=== PATIENT | female | born 1985 | race Caucasian/White ===

== ENCOUNTER 2023-08-18 10:50 | Outpatient (REF) | payer OTHER, SELFPAY ==
--- NOTE | ~2023-08-18 | US_ITS ---
EXAMINATION: MM DIAGNOSTIC DIGITAL BREAST TOMOSYNTHESIS, BILATERAL US BREAST LIMITED, BILATERAL MAMMOGRAPHY: CLINICAL INFORMATION: 38-year-old female presents for baseline mammography examination complaining of non-healing rash right nipple, which failed to resolve after medical management. Rule out abscess/mastitis. Note: Patient only speaks Romanian, and use of a manganese heater on the IPad translation system was necessary. Patient has no left breast complaints. COMPARISON: Mammography: None. Baseline exam. TECHNIQUE: Digital breast tomosynthesis is performed in both the craniocaudal and mediolateral oblique views along with computer-aided detection (CAD). Synthesized 2D images are generated from the tomosynthesis. In addition, 2-D spot magnification RIGHT CC and ML views were obtained of the nipple and retroareolar region RIGHT breast, full-field RIGHT 3-D 90 degree mediolateral view was obtained, as well as 3-D spot compression LEFT cc views x3, and LEFT MLO views x2. FINDINGS: The breasts are heterogeneously dense, which may obscure small masses (ACR BI-RADS breast composition Category c). RIGHT BREAST: -There are no suspicious masses, suspicious grouped calcifications, or areas of architectural distortion in the right breast. No definite skin or nipple thickening or retraction is identified. No axillary abnormality. The nipple region and retroareolar tissues will be evaluated by ultrasound. LEFT BREAST: -There is a spiculated irregular mass in the 12:00 axis of the left breast, middle one third, measuring up to 3.0 cm, with extensive associated parenchymal distortion, highly suspicious. -Posterolateral to this is an amorphous asymmetric focal density at the 2:00 axis measuring 1.6 cm in length. -Medial to the spiculated mass at the 11:00 axis is a focal asymmetric density measuring approximately 1.3 cm in length. Neither of these abnormalities compressed out on spot compression views, and persisted. These will be evaluated by ultrasound, as well as the index spiculated mass. Ultrasound of the left axilla was also be obtained. ULTRASOUND: CLINICAL INFORMATION: As above. COMPARISON: None TECHNIQUE: Targeted sonographic evaluation of both breasts was performed using a high frequency linear transducer. Attention to the periareolar region was given to the right breast. Attention to the 11:00, 12:00, 2:00 axes of the left breast was given, as well as the left axilla. Selected archived documentation. FINDINGS: Both the technologist and myself scanned the patient. RIGHT BREAST: There is no definite nipple thickening or periareolar thickening noted. No skin thickening is evident surrounding the nipple. There is mild duct ectasia in the retroareolar region, of which numerous ducts appear filled with hypoechoic material, and the region appears hyperemic on color Doppler imaging. Recommend periareolar skin puncture biopsy to exclude Paget's disease. LEFT BREAST: -There is an irregular spiculated markedly hypoechoic shadowing mass at the 12:00 axis left breast, 3 cm from the nipple, measuring 3.1 x 1.8 x 1.6 cm approximately, with sonographic spiculation in the margins, and hyperechoic surrounding fat. This does extend quite close to the pectoralis fascia and invasion cannot be excluded. This is a BI-RADS 5 lesion. Ultrasound-guided biopsy recommended. -At the 11:00 axis, 3 cm from the nipple, there is an 8 x 9 mm hypoechoic irregular mass, possibly a satellite lesion, although it only appeared masslike in one plane, and elongated in the orthogonal plane. This should ultimately be assessed by MRI. -At the 2:00 axis left breast, 10 cm from the nipple, there is a hypoechoic lobulated mass with through transmission and no internal color Doppler flow measuring 0.5 x 1.0 x 0.7 cm. This is of uncertain etiology but most likely represents either a satellite lesion or pathologic lymph node in the tail of Garza. Ultrasound-guided biopsy suggested. -Within the left axilla, there is a pathologic enlarged lymph node measuring 1.9 x 1.2 x 1.0 cm, with cortex measuring up to 6 mm, and grossly abnormal morphology. This is most likely a metastatic lymph node. Ultrasound-guided biopsy recommended. US/US breast BI limited mamm only IMPRESSION: 1. Findings in the RIGHT retroareolar region which could indicate Paget's disease of the nipple. Surgical consultation with punch biopsy recommended. 2. Spiculated irregular shadowing hypoechoic mass LEFT breast 12:00 axis measuring up to 3.1 cm, questionable hypoechoic irregular 8 x 9 mm mass at the LEFT 11:00 axis, hypoechoic lobulated mass measuring up to 1.0 cm in the LEFT 2:00 axis, and pathologically enlarged LEFT axillary lymph node measuring 1.9 cm with 6 mm cortex. These are all suspicious lesions. Ultrasound-guided biopsy recommended for the 12:00, 2:00 lesions and the pathologic left axillary lymph node. Ultimately breast MRI also recommended to assess extent of disease and for chest wall invasion. 3. Above findings discussed with the patient's in detail, who spoke Turkish, who appeared to better understand the findings and plan. OVERALL ASSESSMENT: Mammography: BI-RADS 5 - Highly suggestive of malignancy Ultrasound: BI-RADS 5 - Highly suggestive of malignancy RECOMMENDATION: Biopsy recommended
== END 2023-08-18 10:51 | disposition home or self-care (01) ==
LOC: HO.MAMMO 10:50
PROVIDERS: Visit Provider Advanced Practice Midwife
DX: Z12.31 Encounter for screening mammogram for malignant neoplasm of breast (principal); N61.0 Mastitis without abscess
CPT/HCPCS: 76642; 77062; 77066

== ENCOUNTER → 2023-08-18 11:00 | Outpatient (BNV) | payer OTHER, SELFPAY | PROVIDERS: Visit Provider Radiology Diagnostic Radiology | DX: N61.0 Mastitis without abscess (principal) | CPT/HCPCS: 76642; 77062; 77066 ==

== ENCOUNTER 2023-08-25 08:21 | Outpatient (AMB) | payer OTHER, SELFPAY ==
--- NOTE | 2023-08-25 08:22 | A.OFFVIS_ITS ---
Intake Vital Signs 08/25/23 08:35 Weight 174 lb BP 118/73 Blood Pressure Location Rt brachial Position Sitting Pulse 88 Intake Visit Reasons: Rt br punchbx- Lt br usbx 11&12 o'cl&nearLt axi Intake Note: This patient presents for a consultation for Left breast Ultrasound guided biopsy for 11:00,12:00 & axillary area. Pt c/o; reports was having pain on the right breast and swelling but has went away. Motion Picture Projectionist Apprentice Required: No Motion Picture Projectionist Apprentice Name: Frankie [id number] Copper Tapper: Copper Tapper Present (Niesha) Accompanied by: Self / Same As Patient Allergies No Known Allergies Allergy (Verified 08/25/23 08:31) Medication List - Last Reconciled 08/25/23 by Juanpablo Allen MD No Known Home Meds HPI Rt br punchbx- Lt br usbx 11&12 o'cl&nearLt axi HPI Details 38-year-old female referred for left homero ast masses. She mentions that she has had a mass the left breast for ?a few years?. She was sent for a mammogram by her primary care physician. This shows an irregular spiculated hypoechoic mass at the 12:00 o'clock excision of the left breast measuring 3.1 x 1.8 x 1.6 cm. This appears to be close to the pectoralis fascia. A 2nd mass at the 11 o'clock position is also seen measuring about 8 x 9 mm. There is what appears to be a pathologically enlarged axillary lymph node measuring 1.9 cm as well on the left side. Ultrasound biopsies of all these masses have been recommended by the radiologist. She also has this chronic rash on the nipple on the right side. Her menarche was at age of 19. Her 1st was at age of 33. She had be en 3 times. She denies any family history of breast cancer. [facility] Medical History (Updated 08/25/23 @ 09:08 by Juanpablo Allen MD) Nipple dermatitis Axillary lymphadenopathy Left breast mass Surgical History History of back surgery Social History Alcohol intake: never Patient Tobacco Use Status: Never used Tobacco Female Reproductive History Menstrual Age of Menarche: 19 Total pregnancies: 3 Review of Systems Const Denies chills and Denies fever(s) Card Denies chest pain, Denies dyspnea and Denies dyspnea on exertion Resp Denies cough, Denies dyspnea and Denies dyspnea on exertion GI Denies hematochezia and Denies change in bowel habits Denies hematuria Musc Denies back pain and Denies limited range of motion Neuro Denies focal weakness and Denies convulsions Psych Denies depression and Denies mood swings Physical Exam Vital Signs: Last Vital Signs Pulse 88 08/25/23 08:35 BP 118/73 08/25/23 08:35 Const General: comfortable and no acute distress Orientation/consciousness: patient oriented x3 Neck Neck: Yes no lymphadenopathy Chest Other: Palpable mass on the upper aspect of the left breast, vague, feels indurated and poorly defined, seems to be about 4 cm in size; there are no obvious palpable axillary lymph nodes; the right nipple shows some dermatitic changes with dryness Resp Auscultation: clear to auscultation bilaterally Cardio Rhythm: regular rhythm GI Palpation (GI): Soft to palpation, nontender and no guarding Neuro General: patient oriented x3 Assessment & Plan Assessment & Plan (1) Left breast mass: Code(s): N63.20 - Unspecified lump in the left breast, unspecified quadrant Plan: She has multiple breast masses as described above. These appear to be suspicious. An ultrasound biopsy had been recommended by the radiologist. I explained to her the technique of this procedure. She seems to understand. I will see her again in the office next week to discuss the path report. She may need to have an MRI of the breast as well down the line to further define the extent of this lesions. The visit was done with the help of an Romansh cat scan tech (2) Axillary lymphadenopathy: Code(s): R59.0 - Localized enlarged lymph nodes Plan: There is 1 enlarged lymph node in the left axilla. An ultrasound biopsy is also being planned by the radiologist. (3) Nipple dermatitis: Code(s): L30.9 - Dermatitis, unspecified Plan: She has what appears to be dermatitic changes in the right nipple. I plan on doing a skin biopsy next week when she comes back to the office to review her path report. Orders: Orders US breast ndl core biopsy LT 08/24/23 N63.20 - Unspecified lump in the left breast, unspecified quadrant US biopsy lymph node 08/24/23 R59.0 - Localized enlarged lymph nodes US breast ndl core bio ea add 08/24/23 N63.20 - Unspecified lump in the left breast, unspecified quadrant Coding Level of Care Code New Pt Level 4 (91004) Diagnoses Left breast mass N63.20 Axillary lymphadenopathy R59.0 Nipple dermatitis L30.9
[2023-08-25 08:35] VITALS: BP 118/73; PULSE 88
== END 2023-08-25 09:05 | disposition home or self-care (01) ==
PROVIDERS: Visit Provider Surgery
DX: N63.20 Unspecified lump in the left breast, unspecified quadrant (principal); R59.0 Localized enlarged lymph nodes; L30.9 Dermatitis, unspecified
CPT/HCPCS: 99204

== ENCOUNTER 2023-08-25 09:17 | Outpatient (REF) | payer OTHER, SELFPAY ==
--- NOTE | ~2023-08-25 | MM_ITS ---
PROCEDURE: US GUIDED BREAST BIOPSY, LEFT CLINICAL INFORMATION: Multiple masses left breast, suspicious for multicentric carcinoma. Biopsy recommended of the 12:00 mass, 2:00 mass, and an abnormal left axillary lymph node. The patient only speaks Turkmen, and the translating iPad service was utilized. COMPARISON: 08/18/2023 bilateral mammography and bilateral breast ultrasound. PROCEDURAL DETAILS: The details of the procedure, as well as the risks, benefits, and alternatives to the procedure were explained to the patient in detail with the use of the translating iPad and all of her questions were answered, after which written informed consent was obtained. Site and side were confirmed. Site A: sonography revealed an irregular shadowing hypoechoic mass lesion at 12:00 left breast, 3 cm from the nipple, measuring approximately 3.1 x 1.8 x 1.6 cm. A time-out was performed, the lesion intended for biopsy was targeted, and the skin of the overlying left breast was then marked, prepped and draped in the usual sterile fashion. Using sonographic guidance, sterile technique, and 1% lidocaine without epinephrine for local anesthesia, multiple core biopsies were obtained through the targeted area with a 14G spring loaded Sertera core biopsy device. There was real-time confirmation of appropriate needle passage. Sampling was documented. At the completion of tissue sampling, a single open coil-shaped metallic clip was deposited at the biopsy site. Site B: sonography revealed an oval lobulated hypoechoic mass at the 2:00 axis, 10 cm from the nipple, measuring approximately 1.0 x 0.7 x 0.5 cm. The lesion intended for biopsy was targeted, and the skin of the overlying left breast was then marked, prepped and draped in the usual sterile fashion. Using sonographic guidance, sterile technique, and 1% lidocaine without epinephrine for local anesthesia, multiple core biopsies were obtained through the targeted area with a 14G spring loaded Sertera core biopsy device. There was real-time confirmation of appropriate needle passage. Sampling was documented. At the completion of tissue sampling, a single butterfly-shaped metallic clip was deposited at the biopsy site. Site C: sonography revealed an abnormally enlarged left axillary lymph node measuring 1.9 x 1.2 x 1.0 cm with cortex measuring up to 6 mm. The lesion intended for biopsy was targeted, and the skin of the overlying left axilla was then marked, prepped and draped in the usual sterile fashion. Using sonographic guidance, sterile technique, and 1% lidocaine without epinephrine for local anesthesia, multiple core biopsies were obtained through the targeted area with a 14G spring loaded LinkStormera core biopsy device. There was real-time confirmation of appropriate needle passage. Sampling was documented. At the completion of tissue sampling, a single barrel shaped metallic clip was deposited at the biopsy site. There was no evidence of immediate complication. SPECIMEN: 3 well formed core samples were obtained from each site. DIGITAL POST-PROCEDURE MAMMOGRAPHY: Breast density: The tissue contains scattered areas of fibroglandular density. BI-RADS version 5, category B. There are no new mammographic findings demonstrated. The postprocedure 2-view direct digital mammogram reveals satisfactory and accurate positioning of the 3 biopsy clips, without evidence of migration. No hematoma present. The patient tolerated the procedure well and, after assuring adequate hemostasis, was discharged in good condition after reviewing postbiopsy breast care instructions. Final pathology results are pending. MM/MM tomosynthesis diagnostic LT IMPRESSION: 1. No immediate complication from ultrasound-guided percutaneous biopsy 2 left breast masses at 12:00 and 2:00, and 1 abnormal left axillary lymph node. 2. Ultrasound was used to localize and guide 3 marker clip placements. 3. The 2-view direct digital postprocedure mammogram reveals accurate positioning of all 3 of the biopsy clips. 4. Final pathology results are pending. A separate report with final recommendations will be issued once these results are made available.
[2023-08-25] MEDS: Lidocaine HCl 1 % 20 ML VIAL 27 ML SUBCUT (12:20)
[2023-08-25] MEDS: Sodium Bicarbonate 8.4% 50 MEQ/50 ML VIAL SUBCUT (12:21)
== END 2023-08-25 09:18 | disposition home or self-care (01) ==
LOC: HO.MAMMO 09:17
PROVIDERS: Visit Provider Surgery
DX: R59.0 Localized enlarged lymph nodes (principal); N63.21 Unspecified lump in the left breast, upper outer quadrant
CPT/HCPCS: 19083; 19084; 38505; 76942; 77061; 77065; 88305; 88342; 88360; 99202; A4648; C1894

== ENCOUNTER → 2023-08-25 10:00 | Outpatient (BNV) | payer OTHER, SELFPAY | PROVIDERS: Visit Provider Radiology Diagnostic Radiology | DX: C50.812 Malignant neoplasm of overlapping sites of left female breast (principal); Z17.0 Estrogen receptor positive status [ER+] | CPT/HCPCS: 19083; 19084; 38505; 76642; 77065 ==

== ENCOUNTER 2023-09-01 09:58 | Outpatient (AMB) | payer OTHER, SELFPAY ==
--- NOTE | 2023-09-01 10:04 | MHC.OFFVIS ---
Intake Intake Visit Reasons: breast biopsy results Intake Note: This patient presents for a follow-up assessment for breast biopsy results. Pt c/o; reports bruising bx site. Cardiac Cath Technician Required: Yes Cardiac Cath Technician Language: Portuguese Cardiac Cath Technician Name: Jocelyn Zabala Information Interpreted: non-clinical & clinical Accompanied by: Spouse/child Allergies No Known Allergies Allergy (Verified 09/01/23 10:07) Medication List - Last Reconciled 09/01/23 by Juanpablo Allen MD No Known Home Meds HPI breast biopsy results HPI Details 38-year-old female initially referred referred for left breast masses. She mentions that she has had a mass the left breast for ?a few years?. She was sent for a mammogram by her primary care physician. This shows an irregular spiculated hypoechoic mass at the 12:00 o'clock excision of the left breast measuring 3.1 x 1.8 x 1.6 cm. This appears to be close to the pectoralis fascia. A 2nd mass at the 11 o'clock position was also seen measuring about 8 x 9 mm. There was what appears to be a pathologically enlarged axillary lymph node measuring 1.9 cm as well on the left side. She therefore underwent ultrasound biopsies of the 2 masses on the left breast and the lymph node on the left axilla and she is here to discuss the path report. She had tolerated the biopsies well. She also has this chronic rash on the nipple on the right side. Her menarche was at age of 19. Her 1st was at age of 33. She had been 3 times. She denies any family history of breast cancer. [facility] Medical History (Updated 09/01/23 @ 09:45 by Juanpablo Allen MD) Breast CA Nipple dermatitis Axillary lymphadenopathy Left breast mass Surgical History History of back surgery Social History Alcohol intake: never Patient Tobacco Use Status: Never used Tobacco Female Reproductive History Menstrual Age of Menarche: 19 Review of Systems Const Denies chills and Denies fever(s) Card Denies chest pain, Denies dyspnea and Denies dyspnea on exertion Resp Denies cough, Denies dyspnea and Denies dyspnea on exertion GI Denies hematochezia and Denies change in bowel habits Denies hematuria Musc Denies back pain and Denies limited range of motion Neuro Denies focal weakness and Denies convulsions Psych Denies depression and Denies mood swings Physical Exam Const General: comfortable and no acute distress Orientation/consciousness: patient oriented x3 Neck Neck: Yes no lymphadenopathy Chest Other: Vague poorly defined mass on the upper part of the left breast, 4 cm in size, unable to palpate any obvious lymph node in the axilla Resp Auscultation: clear to auscultation bilaterally Cardio Rhythm: regular rhythm GI Palpation (GI): Soft to palpation, nontender and no guarding Neuro General: patient oriented x3 Assessment & Plan Assessment & Plan (1) Breast CA: Code(s): C50.919 - Malignant neoplasm of unspecified site of unspecified female breast Plan: Unfortunately, the biopsy of the mass on the left breast at the 12 o'clock position 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 This is ER [place] positive. The mass at the 2 o'clock position was a fibroadenoma. The biopsy of the lymph node on the left axilla shows metastatic carcinoma consistent with her breast primary. I explained to her the above findings. She has a large mass on exam as well as on mammogram and she also has disease in the axillary lymph node. She will likely benefit from neoadjuvant treatment. I am going to arrange for her to be seen by the oncologist. I will see her again next month to be sure that she is being navigated well with her disease. Since she is young, she should have genetic testing as well. She she had dermatitic changes on the right nipple so she may need to have a biopsy of this down the line although her imaging studies did not show any suggestion of any any neoplastic process in the right breast. The entire visit was done in the presence of Jocelyn Zabala. Orders: Referrals Hematology & Oncology Referral C50.919 - Malignant neoplasm of unspecified site of unspecified female breast Coding Level of Care Code Est Pt Level 4 (90194) Diagnoses Breast CA C50.919
== END 2023-09-01 10:50 | disposition home or self-care (01) ==
PROVIDERS: Visit Provider Surgery
DX: C50.919 Malignant neoplasm of unspecified site of unspecified female breast (principal)
CPT/HCPCS: 99214

== ENCOUNTER → 2023-09-01 09:58 | Outpatient (BNVA) | payer OTHER, SELFPAY | PROVIDERS: Visit Provider Surgery | DX: C50.812 Malignant neoplasm of overlapping sites of left female breast (principal); D24.2 Benign neoplasm of left breast | CPT/HCPCS: 99212 ==

== ENCOUNTER → 2023-09-03 12:46 | Outpatient (BNV) | payer OTHER, SELFPAY | PROVIDERS: PCP General Practice; Visit Provider Internal Medicine Medical Oncology | DX: C50.912 Malignant neoplasm of unspecified site of left female breast (principal) | CPT/HCPCS: 99204; 99214 ==

== ENCOUNTER 2023-09-16 10:39 | Outpatient (AMB) | payer OTHER, SELFPAY ==
--- NOTE | 2023-09-16 10:41 | MHC.OFFVIS ---
Intake Intake Visit Reasons: skin biopsy of right breast Intake Note: This patient presents for in office procedure for skin biopsy right breast. Patient c/o; no complaints. Deicer Inspector Pneumatic Required: No Deicer Inspector Pneumatic Name: spouse declinded security solutions engineer Accompanied by: Family/Other Allergies No Known Allergies Allergy (Verified 09/16/23 10:48) Medication List - Last Reconciled 09/16/23 by Juanpablo Allen MD cholecalciferol (vitamin D3) (Vitamin D3) 125 mcg PO DAILY cholecalciferol (vitamin D3) 125 mcg PO DAILY HPI skin biopsy of right breast HPI Details She is here for follow-up after recent diagnosis of left breast cancer. She has a large mass on the left breast and her PET scan from earlier this week shows hypermetabolic left breast mass consistent with her known malignancy along with hypermetabolic left axillary lymph nodes consistent with lymphatic metastasis. There is an intensely hypermetabolic right paraspinal soft tissue nodule as well seen on the PET scan. She does not feel any mass on this area She was also told by her primary care physician to have the right nipple biopsied because of what appears to be dermatitic changes. She says he she has had this for about half a year now. [facility] Medical History Breast CA Nipple dermatitis Axillary lymphadenopathy Left breast mass Surgical History History of right breast biopsy (~09/16/23) History of back surgery Social History Household Members: Family Alcohol intake: never Patient Tobacco Use Status: Never used Tobacco service: No Current occupational status: unemployed Female Reproductive History Menstrual Age of Menarche: 19 Review of Systems Const Denies chills and Denies fever(s) Card Denies chest pain, Denies dyspnea and Denies dyspnea on exertion Resp Denies cough, Denies dyspnea and Denies dyspnea on exertion GI Denies hematochezia and Denies change in bowel habits Denies hematuria Musc Denies back pain and Denies limited range of motion Neuro Denies focal weakness and Denies convulsions Psych Denies depression and Denies mood swings Physical Exam Const General: comfortable and no acute distress Chest Other: Left breast mass, firm, fixed Right nipple with dermatitic changes , no mass, no cellulitic changes, no inflammatory changes Assessment & Plan Assessment & Plan (1) Breast cancer, left: Code(s): C50.912 - Malignant neoplasm of unspecified site of left female breast Plan: She has a large left breast mass, invasive ductal biopsy. This is more than 3 cm in size based on mammogram findings. She also has clinically diseased lymph nodes in the left axilla. She is to undergo chemotherapy and is following Dr. Perales for this. She is supposed to have a port placed next week She has dermatitic changes on the nipple. In view of this, I biopsied this under local anesthesia in the office. The areas prepped and draped. Lidocaine 1% was used for local anesthesia. I made when she biopsies of the nipple itself for the dermatitic changes. We used silver nitrate sticks for hemostasis. A Band-Aid was then placed afterwards. Her MRI shows an intensely hypermetabolic right paraspinal soft tissue nodule as well. I will review these findings with the radiologist to see if there is any need for a biopsy for this. There is no palpable mass on the back. She denies any back pain. She does have a history of surgery for her back after falling as a child and hardware and screws in the area. I will continue to follow her in the office while undergoing treatment. An security solutions engineer was used for this visit. The entire visit was about 45 minutes long. Coding Level of Care Code Est Pt Level 4 (15503) Diagnoses Breast cancer, left C50.912
== END 2023-09-16 11:32 | disposition home or self-care (01) ==
PROVIDERS: PCP General Practice; Visit Provider Surgery
DX: C50.912 Malignant neoplasm of unspecified site of left female breast (principal)
CPT/HCPCS: 99214

== ENCOUNTER 2023-09-16 10:39 | Outpatient (REF) | payer OTHER, SELFPAY | END 2023-09-16 10:40 | disposition home or self-care (01) | LOC: HO.LNP 10:39 | PROVIDERS: PCP General Practice; Visit Provider Surgery | DX: L30.9 Dermatitis, unspecified (principal); C50.912 Malignant neoplasm of unspecified site of left female breast | CPT/HCPCS: 88304; 88305; 88342; 88360; 99212 ==

== ENCOUNTER 2023-09-20 11:41 | Day surgery (SDC) | payer OTHER, SELFPAY ==
--- NOTE | ~2023-09-20 | IR_ITS ---
CLINICAL HISTORY: Left breast cancer. The patient presents to interventional radiology for placement of a port for chemotherapy. PROCEDURES: 1. Real-time ultrasound-guided access into the right internal jugular vein after documentation of selected vessel patency, and permanent image storing in the patient records. 2. Placement of a 6.6 Cambodian single-lumen power port. CLINICIAN: Rahul Tariq PA-C MEDICATIONS: - Versed 1.5 mg, Fentanyl 75 mcg, Lidocaine 1% 10 mL SQ -Antibiotics: Ancef 2g -For additional details, please see nursing flowsheet. Complications: None. Estimated blood loss: <5 ml Specimens: None. Contrast: None. Fluoroscopy time: 3.0 min MODERATE SEDATION TIME: 31 min PROCEDURE NOTE: The procedure, risks, benefits, and alternatives were carefully explained to the patient and written informed consent was obtained. The patient was placed supine on the fluoroscopy table. A timeout was performed. The right neck and chest was prepped and draped in usual sterile fashion. Maximum barrier technique was utilized. Local anesthesia was administered to the access site with 1% lidocaine. Under ultrasound guidance, the right internal jugular vein was accessed with a 5 fr micropuncture set. A 0.035 in wire was advanced into the IVC. A peel-away sheath was advanced over the wire and into the SVC, and the wire was removed. Next, subcutaneous lidocaine was administered to the chest. The port pocket was created after the skin incision, utilizing blunt dissection. Using blunt dissection, a subcutaneous tunnel was created that connects from the port pocket to the venotomy site. Through the peel-away sheath, the 6.6 Cambodian port catheter was placed. The catheter position was verified with fluoroscopy to be at the superior vena cava/right atrial junction. The port was connected to the catheter and was placed in the pocket. The venotomy site was closed with a 3-0 Vicryl subcutaneous suture. The port incision site was closed with interrupted 3-0 Vicryl subcutaneous sutures and surgical glue. Prior to closing the skin, 1 g of Ancef solution was placed in the pocket. The port was tested, flushed, and packed with heparin per routine protocol. The patient tolerated the procedure well. The patient was stable after the procedure and was transferred to the PACU. The procedure was performed under moderate sedation and with a dedicated nurse with continuous monitoring of vital signs. A permanent image of the ultrasound the neck and fluoroscopic image of the chest was saved and sent to PACS. FINDINGS: 1. Patent right internal jugular vein 2. Placement of a 6.6 Cambodian single lumen power port. 3. Port flushes and aspirates very well with a 10 mL syringe. No pneumothorax. IR/IR cvc insert tunnel w prt/machine silk screen printer IMPRESSION: Placement of a 6.6 Cambodian single-lumen power port. PLAN: - The patient will be discharged home when stable by sedation protocol. - Port may be used immediately. This procedure was performed by Rahul Tariq PA-C, and directly supervised by Dr. Lainez
[2023-09-20 12:52] VITALS: BP 114/81; PULSE 80; RESP 18; TEMP 36.6; O2SAT 100
[2023-09-20 12:53] VITALS: BMI 28.6
[2023-09-20 12:57] LABS: UPreg QC Valid YES; Urine Pregnancy NEGATIVE (NEGATIVE)
[2023-09-20 12:58] LABS: INTERNATIONAL NORM RATIO 1.1 (0.9-1.1); Prothrombin Time 12.8 SEC (11.1-13.3)
[2023-09-20 13:01] LABS: Partial Thromboplastin Time 30.5 SEC (26.0-36.8)
[2023-09-20 14:30] VITALS: BP 113/84; PULSE 58; RESP 18; TEMP 36.4; O2SAT 98
[2023-09-20 14:45] VITALS: BP 113/59; PULSE 71; RESP 16; TEMP 36.3; O2SAT 100
[2023-09-20 15:00] VITALS: BP 124/84; PULSE 78; RESP 16; O2SAT 98
[2023-09-20 15:15] VITALS: BP 91/57; PULSE 59; RESP 16; O2SAT 100
[2023-09-20] MEDS: Acetaminophen 325 MG TABLET 650 MG PO (15:26)
[2023-09-20 15:29] VITALS: BP 102/64; PULSE 60; RESP 16; TEMP 36.1; O2SAT 100
== END 2023-09-20 15:46 | disposition home or self-care (01) ==
PROVIDERS: Physician Assistant Surgical; Student in an Organized Health Care Education/Training Program; PCP General Practice; Visit Provider Internal Medicine Medical Oncology
DX: Z45.2 Encounter for adjustment and management of vascular access device (principal); C50.812 Malignant neoplasm of overlapping sites of left female breast; C77.3 Secondary and unspecified malignant neoplasm of axilla and upper limb lymph nodes; D24.2 Benign neoplasm of left breast
CPT/HCPCS: 36415; 36561; 76937; 81025; 85610; 85730; 99152; 99153; C1769; C1788; J0690; J1642; J1644; J2250; J2310; J3010

== ENCOUNTER → 2023-09-20 12:47 | Outpatient (BNV) | payer OTHER, SELFPAY | PROVIDERS: PCP General Practice; Visit Provider Physician Assistant Surgical | DX: C50.912 Malignant neoplasm of unspecified site of left female breast (principal) | CPT/HCPCS: 36561; 76937 ==

== ENCOUNTER → 2023-09-22 09:00 | Outpatient (REF) | payer OTHER, SELFPAY ==
--- NOTE | 2023-09-07 10:07 | HO.HEMONCPA ---
Addendum entered by Sarah Peters 09/08/23 10:59: Approved Original Note: [place] PENDING FOR PET/CT SKULL TO THIGH [id number] WAITING FOR DECISION FROM [facility] TRACKING # [id number] ALL NOTES FAXED
--- NOTE | 2023-09-22 09:05 | CA_ITS ---
Transthoracic Echocardiogram Patient (Last, First, Middle): Lori Landeros, Gender: Female Date of : 1985 Age: 38 Procedure Date: 09/22/2023 Procedure Type: Transthoracic Echocardiogram Location: OP Height: 165.1 cm Weight: 78.02 kg BSA: 1.86 m2 Heart Rate: bpm BP: 106 / 62 mmHg Shell Reprint Operator: CHRIS Referring MD: Rbuy Perales MD Secondary School Teacher Librarian: Tu Grande MD Symptoms: breast cancer, pre chemo Study Quality: Adequate ECG Rhythm: Sinus Conclusions: - Essentially normal study Findings Left Ventricle Normal left ventricular size, thickness, and systolic function. The visually estimated ejection fraction is between 60-65%. Spectral Doppler is indicative of a normal filling pattern. Peak GLS is -22.1%, within normal limits. Right Ventricle Normal right ventricular cavity size and systolic function. Atria Both atria are normal in size. Interatrial shunt cannot be excluded. Aortic Valve Normal aortic valve structure and function. There is no aortic valve stenosis. There is no aortic valve regurgitation. Mitral Valve Likely normal mitral valve structure and function. There is no mitral valve regurgitation. There is no mitral valve stenosis. Pulmonic Valve The pulmonic valve is likely normal. Tricuspid Valve Normal tricuspid valve structure. There is trace tricuspid valve regurgitation. The right ventricular systolic pressure is normal. The right ventricular systolic pressure is 26 mmHg. Normal right atrial pressure. There is no evidence of pulmonary hypertension. Great Vessels All visible segments of the aorta are normal in size. The pulmonary artery was not well visualized. Venous The inferior vena cava is normal in size and collapses greater than 50% with inspiration. Pericardium/Pleural There is no evidence of pericardial effusion. Prior Study Comparison No prior study available for comparison. Measurements 2D Linear Measurements IVSd: 0.52 0.6-0.9/0.6-1.0 cm LVIDd: 4.70 3.9-5.3/4.2-5.9 cm LVIDd Index: 2.53 2.4-3.2/2.2-3.1 cm/m2 LVIDs: 3.00 2.0-3.6 cm LVPWd: 0.86 0.7-1.1 cm LA Diam: 2.50 2.7-3.8/3.0-4.0 cm LAIDs Index: 1.34 1.5-2.3 cm/m2 LV Mass: 126.12 67-162/88-224 g LV Mass Index: 67.80 43-95/49-115 g/m2 LVOT Diam: 2.00 3.0+(-)1.3 cm 2D Systolic Function EF 4C: 60.50 >55% EF 2C: 65.70 >55% EF BiP: 62.90 >55% Mitral Valve MV Pk E: 0.97 MV PK A: 0.77 MV Decel Time: 187.00 E/A: 1.30 E'Lateral: 15.30 E'Medial: 10.30 E/E' Med: 9.40 E/E' Lat: 6.40 PHT: 55.00 MVA PHT: 4.00 Decel [place]: 5.19 Aortic Valve AoV Pk Danny: 1.28 AoV Mn Danny: 0.95 AoV VTI: 0.29 AoV Pk Grad: 7.00 Aov Mn Grad: 4.00 FELICIANO Cont.VTI: 2.58 LVOT LVOT Pk Danny: 1.14 LVOT Mn Danny: 0.73 LVOT VTI: 0.24 LVOT Pk Grad: 5.00 LVOT Mn Grad: 3.00 LVOT Diam: 2.00 LVOT Area: 3.14 Diastolic Function MV Pk E: 0.97 MV Pk A: 0.77 E/A: 1.30 E'Medial: 10.30 E/E' Med: 9.40 E' Laterial: 15.30 E/E' Lat: 6.40 Right Ventricle TAPSE (mm): 22.60 TVS' Danny: 12.30 Tricuspid Valve TR Pk Danny: 2.38 TR Pk Grad: 23.00 RA Press: 3.00 RVSP: 26.00 Great Vessels Aorta Sinus of Valsalva: 2.81 2.0-3.[address] [place]: 2.57 1.7-3.4 cm Ao Asc: 3.00 2.1-3.4 cm Updated in Other Vendor System with Status of Final Tu Grande MD electronically signed on 09/22/2023 2:16:00 PM with status of Final
== END ==
LOC: HO.CARD 09:00
PROVIDERS: PCP General Practice; Visit Provider Internal Medicine Medical Oncology
DX: C50.919 Malignant neoplasm of unspecified site of unspecified female breast (principal)
CPT/HCPCS: 93306; 93356

== ENCOUNTER → 2023-09-22 09:05 | Outpatient (BNV) | payer OTHER, SELFPAY | PROVIDERS: PCP General Practice; Visit Provider Internal Medicine Cardiovascular Disease | DX: C50.912 Malignant neoplasm of unspecified site of left female breast (principal); Z01.818 Encounter for other preprocedural examination | CPT/HCPCS: 93306 ==

== ENCOUNTER 2023-09-25 14:59 | Outpatient (REF) | payer OTHER, SELFPAY ==
--- NOTE | ~2023-09-25 | MR_ITS ---
EXAMINATION: MR BREAST WITHOUT AND WITH CONTRAST, BILATERAL CLINICAL INFORMATION: Left breast cancer. The pathology result from ultrasound-guided left breast biopsy 08/25/2023 as follows; Left breast, 12 o'clock position-invasive ductal carcinoma, grade 2 and DCIS. 2 o'clock mass-fibroadenoma. Left axillary lymph node-metastatic carcinoma. COMPARISON: None available. Mammography (nondiagnostic monitor review): 08/18/2023. TECHNIQUE: A 1.5 T system and a dedicated breast coil. T1-weighted sequences without fat-saturation were obtained prior to the administration of contrast. Fat-saturated T1 and T2-weighted sequences were also acquired. The patient received 8 mL of IV gadolinium-based contrast, Gadavist. Multiple sequential dynamic T1-weighted sequences were obtained through both breasts with fat-saturation. Subtracted images were reviewed. CAD postprocessing with 3-D reconstructions, maximum intensity projections and kinetic analysis was performed by the interpreting radiologist at an independent workstation and reviewed as a portion of this exam. FINDINGS: Amount of Remaining Fibroglandular Signal: There is heterogeneous fibroglandular tissue, which may obscure small masses(ACR BI-RADS breast composition category C).* Background Parenchymal Enhancement: Moderate. Symmetry of Background Enhancement: There is increased enhancement in the upper left breast likely related to the known malignancy. RIGHT BREAST: There are no suspicious findings. Masses: There are no suspicious enhancing masses. Non-mass Enhancement: There is no suspicious non-mass enhancement. Focus: There are no suspicious enhancing foci. Nonenhancing Findings: Associated findings: There are no suspicious associated findings. Kinetic Curve Assessment: Initial Phase: There are no suspicious areas of color signal. Delayed Phase: There are no areas of washout kinetics. LEFT BREAST: There is an irregular early enhancing area of non-mass enhancement and nodular enhancing masses in the 12 o'clock region 5.7 cm from the nipple (series 102, image 37; series 8, image 30). This corresponds to the biopsy-proven index malignancy. The index malignancy does not involve the skin, chest wall or nipple areolar complex. In addition there is regional mass and non-mass enhancement throughout the entire upper left breast. This extends below the plane of the nipple and crosses the midline from right to left. The abnormal non-mass enhancement extends to within 1 cm of the nipple and within 1 cm of the skin. There is a circumscribed oval 1.2 cm mass in the 2 o'clock position 9.7 cm from the skin (series 102, image 49; series 8, image 23). This likely corresponds to an oval mass demonstrated on mammography. There is susceptibility artifact along the lateral margin. Circumscribed oval 1.0 cm enhancing mass perhaps with internal septations in the 3 o'clock region approximately 8 cm from the left nipple (series 102, image 59; series 8, image 28). This could represent fibroadenoma. Masses: There are no other suspicious enhancing masses. Non-mass Enhancement: As described extensive non-mass enhancement throughout the central and upper left breast. Focus: Scattered enhancing foci within the regional abnormal enhancement in the upper breast. Non-enhancing Findings: Associated Findings: Susceptibility artifact. Postbiopsy change. Kinetic Curve Assessment: Initial Phase: There are scattered areas of persistent enhancement within the index malignancy. Delayed Phase: There are no areas of washout kinetics. There are greater than 3 enlarged left axillary lymph nodes. No suspicious internal mammary lymph nodes are seen. [place] associated with a right-sided vascular catheter. MR/MR breast BI wo/w con IMPRESSION: There is a large irregular mass with associated non-mass enhancement throughout the entire upper central left breast. No convincing involvement of the chest wall or skin. However, the enhancement does extend toward the nipple areolar complex. There is no enhancement of the areola or nipple on the left. Additional circumscribed oval enhancing masses may represent incidental fibroadenoma. Left axillary adenopathy. No evidence of right breast cancer. ASSESSMENT: Right Breast: ACR BI-RADS 1: Negative examination. Left Breast: ACR BI-RADS 6: Known biopsy-proven malignancy. RECOMMENDATIONS: Medical record indicates neoadjuvant chemotherapy is anticipated. Ultimately surgical management will be indicated.
[2023-09-25] MEDS: gadobutroL 10 ML VIAL IVPUSH (16:32)
== END 2023-09-25 15:00 | disposition home or self-care (01) ==
LOC: HO.MRI 14:59
PROVIDERS: PCP General Practice; Visit Provider Internal Medicine Medical Oncology
DX: C50.919 Malignant neoplasm of unspecified site of unspecified female breast (principal)
CPT/HCPCS: 77049; A9585

== ENCOUNTER 2023-09-27 17:37 | Outpatient (REF) | payer OTHER, SELFPAY ==
--- NOTE | ~2023-09-27 | MR_ITS ---
EXAMINATION: MR LUMBAR SPINE WITHOUT AND WITH CONTRAST CLINICAL INFORMATION: Malignant neoplasm of the left breast. Scan with hypermetabolic nodule at L4-L5. COMPARISON: FDG PET/CT scan 09/14/2023. TECHNIQUE: Multiplanar MR imaging of the lumbar spine was performed without and with contrast. A total of 8 mL Gadavist was utilized for this examination. FINDINGS: There is transitional spinal anatomy at the lumbosacral junction with partial sacralization of the L5 vertebral segment. There is a small enhancing nodule within the paraspinal musculature adjacent to the right L4 articular pillar that coincides with the the focus of increased metabolic activity on the FDG PET/CT scan. This finding may represent a soft tissue metastasis in the clinical setting of known breast carcinoma and is best depicted on T1 image 29 of 40 series 6. Spinal alignment is normal in the sagittal dimension. There is a chronic compression deformity of the T12 vertebral body with impaction of the upper endplate resulting in 40% vertebral height loss centrally. Vertebral heights otherwise maintained. No acute bone marrow signal changes. There is slight loss of intervertebral disc height and T2 signal intensity at L4-L5 related to disc degeneration. There are chronic postsurgical changes of a T11 laminectomy and spinal fusion with transpedicular hardware extending from T11 to L1. The tip of the conus medullaris is located at T12-L1. No mass effect on the conus. Visualized distal cord signal intensity is normal. At T12-L1 the annular contour is normal. No canal or neuroforaminal compromise. At L1-L2 the annular contour is normal. No canal or neuroforaminal compromise. At L2-L3 there is a broad shallow central protrusion superimposed upon a bulging disc. No canal stenosis. No mass effect on the traversing or foraminal nerve roots. At L3-L4 the annular contour is normal. No canal or neuroforaminal compromise. At L4-L5 there is a diffusely bulging disc causing flattening of the ventral thecal sac. Bilateral facet degenerative change. No canal stenosis. Subtle abutment of both traversing L5 nerve roots. No foraminal nerve root compression. At L5-S1 the annular contour is normal. No canal or neuroforaminal compromise. Limited visualization of the retroperitoneal anatomy reveals layering calculi within the neck of the gallbladder. MR/MR lumbar spine wo/w con IMPRESSION: There is a small enhancing nodule within the paraspinal musculature adjacent to the right L4 articular pillar that coincides with the focus of increased metabolic activity on the FDG PET/CT scan of the lumbar spine. This finding may represent a soft tissue metastasis in the clinical setting of known breast carcinoma. There is transitional spinal anatomy at the lumbosacral junction with partial sacralization of the L5 vertebral segment. There are chronic postsurgical changes of a T11 laminectomy and spinal fusion with transpedicular hardware extending from T11 to L1. No substantial mass effect on the traversing or foraminal nerve roots within the lumbar spine. No canal stenosis. Cholelithiasis is noted.
[2023-09-27] MEDS: gadobutroL 10 ML VIAL IVPUSH (18:40)
== END 2023-09-27 17:38 | disposition home or self-care (01) ==
LOC: HO.MRI 17:37
PROVIDERS: PCP General Practice; Visit Provider Surgery
DX: C50.912 Malignant neoplasm of unspecified site of left female breast (principal)
CPT/HCPCS: 72158; A9585

== ENCOUNTER 2023-09-29 09:54 | Outpatient (AMB) | payer OTHER, SELFPAY ==
--- NOTE | 2023-09-29 10:00 | A.OFFVIS_ITS ---
Intake Vital Signs 09/29/23 10:03 Height 5 ft 4 in Weight 167 lb BMI 28.7 BP 135/94 H Blood Pressure Location Rt brachial Position Sitting Pulse 110 H Intake Visit Reasons: 1 mo f/u breast CA, onc Intake Note: This patient presents for a one month follow-up assessment for breast carcinoma. Patient c/o; no concerns since last visit. Certified Phlebotomy Technician Required: No Accompanied by: Rubén, daughter Allergies No Known Allergies Allergy (Verified 09/29/23 10:05) Medication List - Last Reconciled 09/29/23 by Juanpalbo Allen MD cholecalciferol (vitamin D3) (Vitamin D3) 125 mcg PO DAILY cholecalciferol (vitamin D3) 125 mcg PO DAILY HPI 1 mo f/u breast CA, onc HPI Details She is here for follow-up for her left breast cancer as well as for a biopsy of the right nipple area. Unfortunately the path report for the biopsy of the right nipple area shows Paget's disease. I reviewed with Rubén, her as well as the patient. She denies any complaints with the biopsy site. The patient also has this right paraspinal soft tissue mass seen on MRI. This is suspicious for metastatic spread of her cancer. She otherwise denies any new complaints at this time. 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 Breast CA Nipple dermatitis Axillary lymphadenopathy Left breast mass Surgical History History of right breast biopsy (~09/16/23) History of back surgery Social History Household Members: Family Alcohol intake: never Patient Tobacco Use Status: Never used Tobacco service: No Current occupational status: unemployed Female Reproductive History Menstrual Age of Menarche: 19 Review of Systems Const Denies chills and Denies fever(s) Card Denies chest pain, Denies dyspnea and Denies dyspnea on exertion Resp Denies cough, Denies dyspnea and Denies dyspnea on exertion GI Denies hematochezia and Denies change in bowel habits Denies hematuria Musc Denies back pain and Denies limited range of motion Neuro Denies focal weakness and Denies convulsions Psych Denies depression and Denies mood swings Physical Exam Vital Signs: Last Vital Signs Pulse 110 H 09/29/23 10:03 BP 135/94 H 09/29/23 10:03 BMI result Body Mass Index 28.7 Const General: comfortable and no acute distress Resp Effort & Inspection: normal respiratory effort Cardio Rate: regular rate GI Palpation (GI): Soft to palpation Assessment & Plan Assessment & Plan (1) Right paraspinous mass: Code(s): R22.2 - Localized swelling, mass and lump, trunk Plan: This is seen on the MRI as well and appears suspicious. I will arrange for a tissue biopsy with IR. This probably can be done with CT scan. I explained this to the family. (2) Paget's disease of right breast: Code(s): C50.011 - Malignant neoplasm of nipple and areola, right female breast Plan: She may need to have excision of this area for full pathologic diagnosis. If there is concomitant invasive cancer, we will have to proceed with sentinel node biopsy as well. I will review this with the oncology team as well to see what the best course of treatment from here on in view of the concomitant cancers on both breasts (3) Breast cancer, left: Code(s): C50.912 - Malignant neoplasm of unspecified site of left female breast Plan: She has advanced disease of the left breast. She will therefore be undergoing neoadjuvant treatment 1st before consideration of any surgical procedure for this side. About 30 minutes was spent with the patient to explain the above. Orders: Orders CT biopsy muscle 09/29/23 R22.2 - Localized swelling, mass and lump, trunk Coding Level of Care Code Est Pt Level 4 (85740) Diagnoses Right paraspinous mass R22.2 Paget's disease of right breast C50.011 Breast cancer, left C50.912
[2023-09-29 10:03] VITALS: BP 135/94; PULSE 110; BMI 28.7
== END 2023-09-29 10:39 | disposition home or self-care (01) ==
PROVIDERS: PCP General Practice; Visit Provider Surgery
DX: R22.2 Localized swelling, mass and lump, trunk (principal); C50.011 Malignant neoplasm of nipple and areola, right female breast; C50.912 Malignant neoplasm of unspecified site of left female breast
CPT/HCPCS: 99214

== ENCOUNTER → 2023-09-29 09:54 | Outpatient (BNVA) | payer OTHER, SELFPAY | PROVIDERS: PCP General Practice; Visit Provider Surgery | DX: C50.011 Malignant neoplasm of nipple and areola, right female breast (principal); C50.912 Malignant neoplasm of unspecified site of left female breast; R22.2 Localized swelling, mass and lump, trunk | CPT/HCPCS: 99212 ==

== ENCOUNTER 2023-10-06 11:57 | Day surgery (SDC) | payer OTHER, SELFPAY ==
--- NOTE | ~2023-10-06 | CT_ITS ---
Breast cancer. PET avid right paraspinal nodule PROCEDURES: 1. Limited preprocedure CT of the abdomen. Permanent images saved in PACS. 2. CT-guided biopsy and aspiration of the right paraspinal nodule CLINICIANS: Rahul Tariq PA-C MEDICATIONS: -Fentanyl 50 mcg, and lidocaine 1% 10 mL SQ -Antibiotics: None -For additional details, please see nursing flowsheet. COMPLICATIONS: None ESTIMATED BLOOD LOSS: < 5 ml CONTRAST: None SPECIMENS: 2 x 18 g cores were placed in formalin. 22-gauge aspiration was placed in CytoLyt. PROCEDURE NOTE: The procedure, risks, benefits, and alternatives were carefully explained to the patient and written informed consent was obtained. The patient was placed prone on the CT table. A timeout was performed. A limited CT of the abdomen was performed to localize the right paraspinal nodule and choose appropriate needle entry and trajectory. The patient was prepped and draped in usual sterile fashion. The skin and deeper soft tissues were anesthetized with lidocaine. Under CT guidance, a 17 gague trocar needle was advanced to the right paraspinal nodule. An 18 gauge biopsy device was inserted through the trocar needle advanced into the right paraspinal nodule. A total of 2, 18 gague cores performed. The specimen was placed in formalin. Next, a 22-gauge Chiba needle was inserted through the trocar needle and advanced into the nodule. Aspiration was performed and sent for cytology. The needles were removed. A dry dressing was applied and secured with a Tegaderm. There were no immediate complications. The patient was stable after the procedure and was transferred to the post anesthesia care unit. CT/CT biopsy muscle Impression: CT-guided biopsy aspiration of the PET avid right paraspinal nodule This procedure was performed by Rahul Tariq PA-C and supervised by Dr. Lainez.
[2023-10-06 12:23] LABS: UPreg QC Valid YES; Urine Pregnancy NEGATIVE (NEGATIVE)
[2023-10-06 13:11] VITALS: BMI 28.6
[2023-10-06 14:30] VITALS: BP 113/60; PULSE 70; RESP 15; TEMP 36.2; O2SAT 98
[2023-10-06 14:45] VITALS: BP 113/61; PULSE 71; RESP 16; TEMP 36.4; O2SAT 99
[2023-10-06 15:00] VITALS: BP 115/60; PULSE 72; RESP 18; TEMP 36.4; O2SAT 100
== END 2023-10-06 15:43 | disposition home or self-care (01) ==
PROVIDERS: Student in an Organized Health Care Education/Training Program; PCP General Practice; Visit Provider Surgery
DX: R19.01 Right upper quadrant abdominal swelling, mass and lump (principal); C50.812 Malignant neoplasm of overlapping sites of left female breast; C77.3 Secondary and unspecified malignant neoplasm of axilla and upper limb lymph nodes; Z17.0 Estrogen receptor positive status [ER+]; R22.2 Localized swelling, mass and lump, trunk; Z98.890 Other specified postprocedural states
CPT/HCPCS: 10009; 20206; 77012; 81025; 88173; 88300; 88305; 88313; 88319; 88341; 88342; 88348; J1642; J2250; J2310; J3010

== ENCOUNTER → 2023-10-06 13:32 | Outpatient (BNV) | payer OTHER, SELFPAY | PROVIDERS: PCP General Practice; Visit Provider Physician Assistant Surgical | DX: R22.2 Localized swelling, mass and lump, trunk (principal) | CPT/HCPCS: 10009; 20206; 77012 ==

== ENCOUNTER 2024-07-21 16:05 | Outpatient (REF) | payer OTHER, SELFPAY ==
--- OUTSIDE RECORDS SUMMARY | 2024-07-21 16:48 | XMS_ITS | Continuity of Care Document ---
Author Organization [facility] Address [address] [place] [address] [address] [place] [address]- Care Team Providers Care School Occupational Therapist Name Role Phone Not on Staff, PCP Primary Care Physician Unavail able Encounter [facility] [place] Date(s): 05/31/24 - 06/30/[address] [place] [address]- Attending Physician: Bebe Dykes Admitting Physician: Bebe Dykes Referring Physician: AdmtrBebe Encounter Type: Triage Allergies, Adverse Reactions, Alerts No Known Allergies Medications acetaminophen 325 mg oral tablet 650 mg, By Mouth, Every 6 hours, Refills 0, Maintenance, 05/13/24 1:46:00 PM EDT, Partial fill uponpatient request if the prescription is for a schedule II opioid drug. Start Date: 05/13/24 Status: Ordered Repeat number: 1 Patient Care team information Care Team Personnel Name: Jose Carlos Leo RN Position: S RN Member Role: Primary Care Nurse Name: Cintia Cole RN Position: S RN Member Role: Primary Care Nurse Name: Alec Christie RN Position: S RN Member Role: Primary Care Nurse Name: Rosy Posadas RN Position: S RN Member Role: Primary Care Nurse Name: Not on Staff, PCP Position: S Physician (General Medicine) Member Role: PCP Name: Katherine Walker LPN Position: S RN Member Role: Primary Care Nurse Care Team Related Persons Name: PEDRO GARCIASSander Insurance Providers Guarantor name: NATALIE Health Plan Information #: 1 Payer: [employer] Member Number: NA Policy Number: NA Group Number: NA
--- OUTSIDE RECORDS SUMMARY | 2024-07-21 16:48 | XMS_ITS | Continuity of Care Document ---
Author Organization [facility] Address [address] [place] [id number]- Care Team Providers Care Bowling Pin Setters Installer Name Role Phone Not on Staff, PCP Primary Care Physician Unavail able Encounter [facility] [place] AC[facility] R [id number] Date(s): 06/12/24 - 07/12/24 [facility] [address] [place] [address]- Encounter Type: Triage Allergies, Adverse Reactions, Alerts [...] Personnel Name: Jose Carlos Leo RN Position: [facility] RN Member Role: Primary Care Nurse Name: Cintia Cole RN Position: [facility] RN Member Role: Primary Care Nurse Name: Alec Christie RN Position: S RN Member Role: Primary Care Nurse Name: Rosy Posadas RN Position: S RN Member Role: Primary Care Nurse Name: Not on Staff, PCP Position: [facility] Physician (General Medicine) Member Role: PCP Name: Katherine Walker LPN Position: S RN Member Role: Primary Care Nurse Care Team Related Persons Name: KATLYN GARCIAS Insurance Providers Guarantor name: NA Health Plan Information #: 1 Payer: [facility] MEDICAID LIMITED Member Number: NA Policy Number: NA Group Number: NA
[2024-07-21 17:54] LABS: Estimated Average Glucose 103 mg/dL; Hemoglobin A1C 112.2289 umol/L; Hemoglobin A1c % 5.2 % (<6.0); Total Hemoglobin (HGBA1C) 3320.5947 umol/L
[2024-07-21 18:12] LABS: TSH reflex Free T4 0.09 uIU/mL (0.32-4.0)
[2024-07-21 20:10] LABS: Free T4 (Free Thyroxine) 1.16 ng/dL (0.71-1.85)
[2024-07-22 04:03] LABS: HBsAGNum1 0.31 S/CO (0.00-0.99); HIV AB/AG Nonreactive (Nonreactive); HIV Num 1 0.05 S/CO (0.00-0.99); Hepatitis B Core Antibody Nonreactive (Nonreactive); Hepatitis B Surface Antigen Negative (Negative); ~HepC Num1 0.11 S/CO (0.00-0.79); ~Hepatitis B Surface Antibody NONREACTIVE (Nonreactive); ~Hepatitis C Antibody Nonreactive (Nonreactive)
[2024-07-25 07:52] LABS: Anti Nuclear Antibody Screen NEGATIVE (NEGATIVE)
== END 2024-07-21 16:06 | disposition home or self-care (01) ==
LOC: HO.HHCL 16:05
PROVIDERS: Visit Provider General Practice
DX: K76.0 Fatty (change of) liver, not elsewhere classified (principal); E06.9 Thyroiditis, unspecified
CPT/HCPCS: 36415; 83036; 84439; 84443; 86038; 86704; 86706; 86803; 87340; 87389